=== PATIENT | male | born 1965 | race Caucasian/White ===

== ENCOUNTER 2024-07-05 14:35 | Emergency (ER) | payer OTHER, SELFPAY ==
[2024-07-05 14:49] VITALS: BP 126/82; PULSE 75; RESP 16; TEMP 35.9; O2SAT 99
[2024-07-05 15:42] LABS: EDUAAPPEAR Clear; EDUABILI Negative (Negative); EDUABLOOD Negative (Negative); EDUACOLOR1 Yellow; EDUAGLUCOSE Negative (Negative); EDUAKETONE Negative (Negative); EDUALEUKO Negative (Negative); EDUANITRATE Negative (Negative); EDUAPROTEIN Negative (Negative)
--- NOTE | 2024-07-05 17:22 | ED.BACK ---
HPI - Back Pain/Injury General Chief Complaint: Back Pain/Injury Stated Complaint: Lower Back Pain Time Seen by Provider: 07/05/24 15:30 Source: patient and RN notes reviewed Mode of arrival: ambulatory Limitations: no limitations History of Present Illness HPI Narrative: 59-year-old male presents Express Care complaining of left flank pain for 3 days. Patient denies any specific injury. He does state he does lift a lot of heavy objects at work. He denies any pain with urination, blood in urine, fevers, body aches, chills, abdominal pain, saddle anesthesia, loss of bowel or bladder, or weakness. He says the pain is worse with certain movements such as lifting his shoulders up or twisting his back a certain way. Patient states this pain is not radiating number describes as a sharp sometimes stabbing pain. Patient rates his pain a 6/10. Patient has been taking ibuprofen with minimal relief. Patient denies any significant past medical history. Related Data Allergies Allergy/AdvReac Type Severity Reaction Status Date / Time No Known Allergies Allergy Mild Unverified 07/20/08 13:39 Review of Systems Review of Systems: CONSTITUTIONAL: Denies fever, chills, or sweats. EYES: Denies visual changes, redness, or discharge. ENT: Denies rhinorrhea, congestion, sore throat, or otalgia. CARDIOVASCULAR: Denies chest pain, palpitations, or edema. RESPIRATORY: Denies cough or dyspnea. GASTROINTESTINAL: Denies abdominal pain, nausea, vomiting, or diarrhea. GENITOURINARY: Denies dysuria or hematuria. SKIN: Denies rash or itching. MUSCULOSKELETAL: Denies back pain, joint pain, or myalgia. Positive for left flank pain NEUROLOGIC: Denies headache, numbness, or weakness. PSYCHIATRIC: Denies anxiety or depression. All other systems reviewed are negative, except as documented in HPI. PMFSH Comments At the time of my signature, I reviewed and agree with the nursing past medical, surgical, social, and family history. There is no relevant family history pertinent to the patient complaint. Exam Narrative: GENERAL: This is a well-nourished, well-developed adult, in no apparent distress. They are non ill-appearing, nontoxic appearing. HEAD: normocephalic, atraumatic. EYES: Sclera clear/white. Vision is grossly intact. EARS: External ears normal, Hearing grossly intact. NOSE: External nose normal THROAT: Mucous membranes moist, NECK: Normal range of motion CARDIOVASCULAR: Regular rate and rhythm RESPIRATORY: Breathing is nonlabored, no respiratory distress, normal respiratory rate GASTROINTESTINAL: Abdomen soft, non-tender, nondistended. No guarding. SKIN: warm, Dry, intact with no suspicious lesions or rash, good texture and turgor. NEURO: awake, alert, and oriented to person, place and time. There were no obvious focal neurologic abnormalities. EXTREMITIES: No joint tenderness, effusion, or edema noted. BACK: Nontender to palpation. No spinal point tenderness, no crepitus. No CVA tenderness. Pain is elicited when patient shrugs shoulders or twisting his trunk left or right. Pain in is present along the left flank the lateral lower part of the latissimus dorsi. Course Course Level of Care: Express Care Visit Vital Signs Vital signs: Vital Signs Temperature 96.7 F L 07/05/24 14:49 Pulse Rate 75 07/05/24 14:49 Respiratory Rate 16 07/05/24 14:49 Blood Pressure 126/82 07/05/24 14:49 Pulse Oximetry 99 07/05/24 14:49 Temperature 96.7 F L 07/05/24 14:49 Pulse Rate 75 07/05/24 14:49 Respiratory Rate 16 07/05/24 14:49 Blood Pressure 126/82 07/05/24 14:49 Pulse Oximetry 99 07/05/24 14:49 Reviewed MDM - Back Pain/Injury MDM Narrative Medical decision making narrative: Patient's urine dipstick is negative for any evidence of infection or signs of a kidney stone. Patient has no CVA tenderness. Patient's symptoms are likely consistent with a muscle strain. Will give patient a short dose steroids and lidocaine patches for pain. Patient was offered muscle relaxers and he declined. Discussed physical exam findings. Advised supportive measures and signs/symptoms to go to the ER. Pt is appropriate for outpt treatment and f/u. Differential Diagnosis Differential diagnosis: Likely strain of lumbar region and other (Strep strain of middle back, renal stone, cystitis) Lab Data Attestation: I reviewed the patient's lab results. Labs: Lab Results 07/05/24 Range/Units 15:40 POC Urine Color Yellow POC Urine Clarity Clear POC Urine pH 7.0 POC Ur Specif [place] 1.020 POC Urine Protein Negative (Negative) POC Ur Glucose (UA) Negative (Negative) POC Urine Ketones Negative (Negative) POC Urine Blood Negative (Negative) POC Urine Nitrite Negative (Negative) POC Urine Bilirubin Negative (Negative) POC Urine Urobilinogen 1.0 POC U Leukocyte Esteras Negative (Negative) Critical Care Time Critical Care Time Critical Care Time: No Discharge Plan Discharge Clinical Impression: Strain of lumbar region Qualifiers: Encounter type: initial encounter Qualified Code(s): S39.012A - Strain of muscle, fascia and tendon of lower back, initial encounter Patient Disposition: Home Condition: Stable Instructions: Back Pain (ED) Additional Instructions: Take dexamethasone as directed for inflammation. Your urine dipstick was negative for any signs of infection or evidence of a kidney stone. Please take ibuprofen or Tylenol as needed for pain. Apply lidocaine patches as directed. You may apply ice or heat to the affected area of your back. Rest. Avoid pushing, pulling, lifting --running or excessive walking-- or anything that worsens the symptoms. You may do back stretches help with your symptoms. Please follow-up with your primary care provider in 3-5 days. Please go to the ER if you develop any weakness to her legs, numbness or tingling to her groin, excruciating pain, or any other concerns. Patient Language: Tamaz[place] Prescriptions: New lidocaine 5 % adhesive patch,medicated 1 patch topical DAILY Qty: 15 0RF Rx Instructions: leave on most painful area for up to 12 hrs dexamethasone 4 mg tablet 4 mg PO DAILY 5 Days Qty: 5 0RF Follow-up/Referrals: PHYSICIAN,LEGAL ADMINISTRATIVE ASSISTANT [Primary Care Provider] - Stand Alone Forms: Work/School Release IP Time of Disposition: 15:44
== END 2024-07-05 15:47 | disposition home or self-care (01) ==
DX: S39.012A Strain of muscle, fascia and tendon of lower back, initial encounter (principal); X58.XXXA Exposure to other specified factors, initial encounter
CPT/HCPCS: 81003; 99213; G0463